=== PATIENT | female | born 1975 | race Caucasian/White ===

== ENCOUNTER 2018-09-26 16:16 | Emergency (ER) | payer MEDICAID, OTHER ==
[~2018-09-26] VITALS: Ht 157.5 cm; Wt 52.6 kg
[2018-09-26 16:32] VITALS: BP 98/61
[2018-09-26] MEDS ORDERED: ONDANSETRON HCL/PF 4 MG/2 ML VIAL ONE (16:46)
[2018-09-26] MEDS ORDERED: HYDROMORPHONE INJ 0.5 MG/0.5 ML SYRINGE ONE (16:46)
[2018-09-26] MEDS ORDERED: HYDROMORPHONE INJ 2 MG/ML DISP.SYRIN IV ONE (17:00)
[2018-09-26] MEDS ORDERED: MAGNESIUM CITRATE 296 ML BOTTLE PO ONE (17:00)
[2018-09-26] MEDS ORDERED: IV NS 0.9% 1,000 ML BAG IV ONE (17:00)
[2018-09-26] MEDS ORDERED: ONDANSETRON HCL/PF 4 MG/2 ML VIAL IVP ONE (17:00)
[2018-09-26] MEDS ORDERED: MAGNESIUM CITRATE 296 ML BOTTLE ONE (17:14)
--- NOTE | 2018-09-26 17:20 | NUR ---
PER DAVID BAGMAN/WOMAN CANCEL IV ORDERS, DILAUDID AND ZOFRAN. RETURNED TO PHARMACY
== END 2018-09-26 17:22 | disposition home or self-care (01) ==
LOC: ER 16:16
DX: K59.00 Constipation, unspecified (principal); Z98.890 Other specified postprocedural states
CPT/HCPCS: J2405; J7030

== ENCOUNTER 2018-09-28 13:32 | Emergency (ER) | payer MEDICAID ==
[~2018-09-28] VITALS: Ht 157.5 cm; Wt 49.4 kg
--- NOTE | 2018-09-28 14:18 | NUR ---
PT AMBULATORY TO ER 16 C/O LLQ ABDOMINAL PAIN, SEEN 2 DAYS AGO FOR SAMEM REASON. ALSO CONCERNED ABOUT A "RECTAL MASS." WHICH MAKES IT HARDER FOR HER TO HAVE BOWEL MOVEMENT. PLACED OM MONITOR. AWAITING MD HATFIELD.
[2018-09-28 15:15] LABS: BASOPHILS # (AUTO) 0.1 /CMM (0.0-0.2); BASOPHILS % (AUTO) 1.1 % (0.0-2.0); EOSINOPHILS % (AUTO) 3.2 % (0.0-6.0); HEMATOCRIT 37 % (33-45); HEMOGLOBIN 12.7 g/dL (11.5-14.8); LYMPHOCYTES # (AUTO) 2.9 /CMM (0.8-4.8); LYMPHOCYTES % (AUTO) 46.5 % (20.0-44.0); MEAN CORPUSCULAR HGB CONC 34 g/dl (31.0-36.0); MEAN CORPUSCULAR VOLUME 94 fL (82-100); MONOCYTES # (AUTO) 0.6 /CMM (0.1-1.30); MONOCYTES % (AUTO) 9.5 % (2.0-12.0); NEUTROPHILS # (AUTO) 2.5 /CMM (1.8-8.9); NEUTROPHILS % (AUTO) 39.7 % (43.0-81.0); PLATELET COUNT (AUTO) 225 /CMM (150-450); RED BLOOD CELL COUNT(AUTO) 3.95 MIL/uL (4.0-5.2); WHITE BLOOD COUNT (AUTO) 6.3 K/uL (4.3-11.0)
[2018-09-28 15:23] LABS: CALCIUM, SERUM 8.5 mg/dL (8.5-10.1); CREATININE 0.7 mg/dL (0.6-1.3); POTASSIUM 4.1 mmol/L (3.5-5.1)
[2018-09-28] MEDS ORDERED: IOHEXOL-300 100 ML VIAL IV ONE (15:23)
[2018-09-28] MEDS ORDERED: IV NS 0.9% 250 ML IV ONE (15:24)
[2018-09-28 15:29] LABS: ALBUMIN 3.2 g/dL (3.4-5.0); BILIRUBIN,TOTAL 0.2 mg/dL (0.2-1.0); TOTAL PROTEIN, SERUM 6.5 g/dL (6.4-8.2)
--- NOTE | 2018-09-28 15:43 | NUR ---
IV LINE INSERTED AT L AC G20.
--- NOTE | 2018-09-28 15:47 | NUR ---
Note niallomid in EDM - 09/28/18 at 1550 by YOLANDA PT AMBULATORY TO ER 16 C/O LLQ ABDOMINAL PAIN, SEEN 2 DAYS AGO FOR SAMEM REASON. ALSO CONCERNED ABOUT A "RECTAL MASS." WHICH MAKES IT HARDER FOR HER TO HAVE BOWEL MOVEMENT. PLACED OM MONITOR. AWAITING MD HATFIELD.
--- NOTE | 2018-09-28 15:50 | NUR ---
PT IS WHEELED TO CT SCAN.
[2018-09-28 15:51] LABS: BILIRUBIN,URINE Negative (NEGATIVE); BLOOD, URINE Negative Ery/uL (NEGATIVE); COLOR,URINE Dark (YELLOW); KETONES,URINE 15 (NEGATIVE); LEUKOCYTE ESTERASE ,URINE Trace (NEGATIVE); NITRITE, URINE Negative (NEGATIVE); PH,URINE 6.5 (5.0-8.0); PROTEIN,URINE Negative (NEGATIVE); UGLUCOSE Negative (NEGATIVE); UROBILINOGEN,URINE 0.2 EU/dL (0.2)
[2018-09-28 15:55] LABS: APPEARANCE,URINE HAZY (CLEAR)
[2018-09-28] MEDS ORDERED: KETOROLAC TROMETHAMINE INJ 30 MG/ML VIAL IV ONE (16:00)
[2018-09-28 16:06] LABS: BACTERIA,URINE Many /HPF (None Seen); RBC,URINE 0-2 /HPF (0-2)
[2018-09-28 16:07] LABS: SQUAMOUS EPITHELIAL CELL,UR Many /HPF (None Seen)
[2018-09-28] MEDS ORDERED: KETOROLAC TROMETHAMINE INJ 30 MG/ML VIAL ONE (16:13)
--- NOTE | 2018-09-28 17:29 | NUR ---
IV removed. Catheter intact and site benign. Pressure and 4x4 applied to site. No bleeding noted. Patient discharged to home in stable condition. Written and verbal after care instructions given. Patient verbalizes understanding of instruction.
[2018-09-28 17:31] VITALS: BP 108/61
== END 2018-09-28 17:32 | disposition home or self-care (01) ==
LOC: ER 13:36
DX: K59.00 Constipation, unspecified (principal); Z98.890 Other specified postprocedural states; Z95.2 Presence of prosthetic heart valve
CPT/HCPCS: 36415; 80048-TC; 80076-TC; 81000-TC; 83690-TC; 84702-TC; 85025-TC; 87086-TC; 87186-TC; J1885; J7050; Q9967